=== PATIENT | female | born 1990 | race Hispanic/Latino ===

== ENCOUNTER 2019-06-01 13:50 | Inpatient (IN) | payer OTHER ==
[2019-06-01] MEDS ORDERED: TYLENOL PO ONE (16:44)
[2019-06-01] MEDS ORDERED: PITOCin/NS 20 UNIT/1000ML DRIP 20 UNITS/1,000 ML BAG IV SCH (17:00)
--- NOTE | 2019-06-01 17:46 | History and Physical Report ---
History of Present Illness Date of examination: 06/01/19 Date of admission: 06/01/19 13:50 Chief complaint: Delivered a fetus prior to or at arrival in the [facility]. Had not known was until the events of today. Past History Past Medical History: neurologic - Obstetrical History : 1 Medications and Allergies Allergies Allergy/AdvReac Type Severity Reaction Status Date / Time bee sting Allergy Unknown Uncoded 10/21/16 15:56 Home Medications Medication Instructions Recorded Confirmed Last Taken Type Acetaminophen [Tylenol] 1,000 mg PO Q8HR #20 tablet 10/21/16 Unknown Rx Active Meds: Active Medications Oxytocin/Sodium Chloride (Pitocin/Ns 20 Unit/1000ml Drip) 20 units in 1,000 mls @ 125 mls/hr IV DIRECT SURENDRA Review of Systems All systems: negative (Was eating lunch during encounter and was under no distress.) - Vital Signs Vital signs: Vital Signs Temp 98.6 F 06/01/19 14:10 Temp Pulse Resp BP Pulse Ox 98.6 F 67 117/72 06/01/19 14:10 06/01/19 17:24 06/01/19 17:24 - Physical Exam Breasts: Positive: deferred Lungs: Positive: Clear to auscultation Abdomen: Positive: soft Results All other labs normal. Assessment and Plan - Patient Problems (1) IUFD at less than 20 weeks of gestation Current Visit: Yes Status: Acute (2) Spontaneous Current Visit: Yes Status: Acute Plan to address problem: Under observation for complications of a spontaneous . Patient is undergoing lab blood tests and results will guide mgt. Had a pelvic US[images seen] but not reported yet.
--- NOTE | 2019-06-01 17:54 | Ultrasound Report ---
TRANSVAGINAL ULTRASOUND HISTORY: rule out retained placenta COMPARISON: TECHNIQUE: Transverse and longitudinal images were obtained of the pelvis using transvaginal ultrasou nd. FINDINGS: Uterus: Uterus measures 12.9 x 6.0 x 6.1 cm. Endometrium: Fluid is present in the region of the cervix measuring 1.3 x 2.3 x 4.9 cm Additional findings: None. IMPRESSION: 1. Fluid within the cervical portion of uterus without evidence of retained placenta. Recommend clini tom correlation Signer Name: Levi Edge MD Signed: 06/01/2019 5:49 PM Workstation Name: [id number]
[2019-06-01 17:57] LABS: Hematocrit 35.9 % (30.3-42.9); Hemoglobin 12.2 gm/dl (10.1-14.3); Mean Corpuscular HGB Conc 34 % (30-34); Mean Corpuscular Volume 91 fl (79-97); Platelet Count 214 K/mm3 (140-440); Red Blood Count 3.95 M/mm3 (3.65-5.03); Red Cell Distribution Width 13.9 % (13.2-15.2)
[2019-06-01] MEDS ORDERED: LANSINOH TP PRN (17:59)
[2019-06-01] MEDS ORDERED: DULCOLAX PR PRN (17:59)
[2019-06-01] MEDS ORDERED: TUCKS PAD TP PRN (17:59)
[2019-06-01] MEDS ORDERED: PHENERGAN PR PRN (17:59)
[2019-06-01] MEDS ORDERED: TYLENOL PO PRN (17:59)
[2019-06-01] MEDS ORDERED: ZOFRAN IV PRN (17:59)
[2019-06-01] MEDS ORDERED: BENADRYL PO PRN (17:59)
[2019-06-01] MEDS ORDERED: SODIUM CHLORIDE FLUSH SYRINGE 10 ML IV SCH (18:00)
[2019-06-01 19:13] VITALS: BP 134/87
[2019-06-01] MEDS ORDERED: IBUPROFEN PO SCH (20:00)
== END 2019-06-01 23:00 | disposition home or self-care (01) | DRG 779 ==
LOC: LD 13:50
PROVIDERS: ADMIT Obstetrics & Gynecology; ATTEND Obstetrics & Gynecology
PROC: 3E0334Z Introduction of Serum, Toxoid and Vaccine into Peripheral Vein, Percutaneous Approach (ICD-10-PCS; principal; 2019-06-01)
DX: O03.9 Complete or unspecified spontaneous abortion without complication (principal); O02.1 Missed abortion; Z3A.20 20 weeks gestation of pregnancy
CPT/HCPCS: 36415; 76857; 85027; 85461; 86850; 86900; 86901; 88305; G0378; J2590; J2790

== ENCOUNTER 2019-10-28 13:25 | Emergency (ER) | payer MEDICARE ==
--- NOTE | 2019-10-28 13:43 | Event Note ---
ED Screening Note Date of service: 10/28/19 Time: 13:40 ED Screening Note: 29 y o f presents cc of right thumb pain and swelling with discoloring s/p crush injury 2 days ago This initial assessment/diagnostic orders/clinical plan/treatment(s) is/are subject to change based on patients health status, clinical progression and re- assessment by fellow clinical providers in the ED. Further treatment and workup at subsequent clinical providers discretion. Patient/guardian urged not to elope from the ED as their condition may be serious if not clinically assessed and managed. Initial orders include: xr hand
--- NOTE | 2019-10-28 14:07 | Emergency Department Report ---
ED General Adult HPI - General Chief complaint: Extremity Injury, Upper Stated complaint: RT HAND PAIN Time Seen by Provider: 10/28/19 13:55 Source: patient Mode of arrival: Ambulatory Limitations: No Limitations - History of Present Illness Initial comments: This is a 29 year old female that states she was injured when a barbell fell on the tip of her thumb 2 days ago. She did not seek medical attention at that time. He has become progressively swollen and red as well as the dorsum of the hand. The patient does not refers fever or chills. -: Gradual, days(s) Location: right, upper extremity Radiation: non-radiation Consistency: intermittent Improves with: none Worsens with: movement Associated Symptoms: denies other symptoms - Related Data Previous Rx's Medication Instructions Recorded Last Taken Type Acetaminophen [Tylenol] 1,000 mg PO Q8HR #20 tablet 10/21/16 Unknown Rx Allergies Allergy/AdvReac Type Severity Reaction Status Date / Time bee sting Allergy Unknown Uncoded 10/21/16 15:56 ED Review of Systems ROS: Stated complaint: RT HAND PAIN Other details as noted in HPI Comment: All other systems reviewed and negative ED Past Medical Hx - Past Medical History Previous Medical History?: Yes Hx Diabetes: No Hx Deep Vein Thrombosis: No Hx Renal Disease: No Hx Sickle Cell Disease: No Hx Seizures: Yes (pt reports taking depakote) Hx Psychiatric Treatment: Yes Hx Asthma: No Additional medical history: ADHD, Bipolar, Anxiety, anemia - Surgical History Past Surgical History?: Yes Additional Surgical History: Jose eye surgery @ young age. Lithotripsy for kidneystones - Social History Smoking Status: Current Every Day Smoker Substance Use Type: Alcohol - Medications Home Medications: Home Medications Medication Instructions Recorded Confirmed Last Taken Type Acetaminophen [Tylenol] 1,000 mg PO Q8HR #20 tablet 10/21/16 Unknown Rx ED Physical Exam - General Limitations: No Limitations General appearance: alert, in no apparent distress - Head Head exam: Present: atraumatic, normocephalic - Eye Eye exam: Present: normal appearance, PERRL, EOMI. Absent: scleral icterus - ENT ENT exam: Present: mucous membranes moist, other (conjunctiva well perfused) - Neck Neck exam: Present: normal inspection. Absent: tenderness, meningismus - Respiratory Respiratory exam: Present: normal lung sounds bilaterally. Absent: respiratory distress - Cardiovascular Cardiovascular Exam: Present: regular rate, normal rhythm. Absent: systolic murmur, diastolic murmur, rubs, gallop - GI/Abdominal GI/Abdominal exam: Present: soft, normal bowel sounds. Absent: distended, tenderness, guarding - Extremities Exam Extremities exam: Present: other (the tip of the right forearm is apparently devitalized. There is a subungual hematoma which is not spontaneously draining. The rest of the thumb is really quite red and 2+ swollen with positive signs of tenosynovitis on extension, + [place]. The dorsum of the hand has 1+ edema erythema extends to the dorsum of the first webspace.) - Back Exam Back exam: Present: normal inspection - Neurological Exam Neurological exam: Present: alert, oriented X3 - Psychiatric Psychiatric exam: Present: normal affect, normal mood - Skin Skin exam: Present: warm, dry, intact, normal color. Absent: rash ED Course Vital Signs 10/28/19 13:29 Temperature 97.6 F Pulse Rate 104 H Respiratory 20 Rate Blood Pressure 128/76 O2 Sat by Pulse 100 Oximetry - Reevaluation(s) Reevaluation #1: Intravenous vancomycin. Laboratory database. Transfer to hand surgery at [facility] has been requested. 10/28/19 14:16 Reevaluation #2: Discussed with [facility]. They state their on total diversion and cannot accept the patient. 10/28/19 14:28 Reevaluation #3: Requested transfer to [facility]. 10/28/19 14:43 Reevaluation #4: [facility] has refused transfer. They claim they do not have hand surgery anywher e in the system. 10/28/19 14:51 Reevaluation #5: Calling [facility]. 10/28/19 14:52 - Consultations Consultation #1: Accepted by Dr. Walton at [facility]. Will transport by ambulance. 10/28/19 15:05 Critical care attestation.: If time is entered above; I have spent that time in minutes in the direct care of this critically ill patient, excluding procedure time. ED Disposition Clinical Impression: Infection of thumb, Tenosynovitis, Cellulitis of hand Disposition: [id number] ANOTHER TYPE HLTHCARE Is pt being admited?: No Does the pt Need Aspirin: No Condition: Stable Referrals: PRIMARY CARE, [Primary Care Provider] - 3-5 Days Time of Disposition: 14:16
[2019-10-28] MEDS ORDERED: TETANUS,DIPH,PERTUSS(ACELL) VACCINE 0.5 ML SYRINGE IM ONE (14:08)
[2019-10-28] MEDS ORDERED: VANCOMYCIN/NS 1 GM/250 ML 1 GM/250 ML BAG IV ONE (14:08)
--- NOTE | 2019-10-28 14:20 | XRay Report ---
RIGHT HAND 3 VIEWS INDICATION / CLINICAL INFORMATION: pain, swelling, discoloring COMPARISON: None available. FINDINGS: BONES / JOINT(S): No acute fracture or subluxation. No significant arthritis. SOFT TISSUES: No significant abnormality. ADDITIONAL FINDINGS: None. Signer Name: Jermain Jessica MD Signed: 10/28/2019 2:15 PM Workstation Name: [id number]
[2019-10-28] MEDS ORDERED: SODIUM CHLORIDE 0.9% 1000 ML 1,000 ML IV ONE (14:26)
[2019-10-28] MEDS ORDERED: MORPHINE 2 MG/1 ML INJ IV ONE ×3 (14:26→16:13)
[2019-10-28] MEDS ORDERED: CLINDAMYCIN 600 MG/50 mL 600 MG/50 ML BAG IV ONE (14:26)
[2019-10-28] MEDS ORDERED: ONDANSETRON 4 MG/2 ML INJ IV ONE (14:26)
[2019-10-28] MEDS ORDERED: VANCOMYCIN 1,250 MG in SODIUM CHLORIDE 0.9% 250ML 250 ML IV ONE (14:30)
[2019-10-28] MEDS ORDERED: MORPHINE 2 MG/1 ML INJ IV PRN (15:13)
[2019-10-28 16:02] LABS: Basophils % (Auto) 0.2 % (0.0-1.8); Eosinophils # (Auto) 0.1 K/mm3 (0.0-0.4); Eosinophils % (Auto) 0.8 % (0.0-4.3); Hematocrit 35.8 % (30.3-42.9); Hemoglobin 12.2 gm/dl (10.1-14.3); Lymphocytes # (Auto) 1.3 K/mm3 (1.2-5.4); Lymphocytes % (Auto) 15.3 % (13.4-35.0); Mean Corpuscular HGB Conc 34 % (30-34); Mean Corpuscular Volume 87 fl (79-97); Monocytes # (Auto) 0.4 K/mm3 (0.0-0.8); Monocytes % (Auto) 4.5 % (0.0-7.3); Platelet Count 275 K/mm3 (140-440); Red Blood Count 4.09 M/mm3 (3.65-5.03); Red Cell Distribution Width 13.7 % (13.2-15.2)
[2019-10-28 16:10] LABS: BUN/Creatinine Ratio 10; Blood Urea Nitrogen 5 mg/dL (7-17); Calcium 8.8 mg/dL (8.4-10.2); Hemolysis Index 9
[2019-10-28 16:20] LABS: Partial Thromboplastin Time 32.1 Sec. (24.2-36.6)
[2019-10-28 16:22] VITALS: BP 131/68
[2019-10-28 16:23] LABS: INR 0.96 (0.87-1.13)
== END 2019-10-28 18:31 | disposition other institution (70) ==
LOC: ED 13:25
DX: M65.9 Synovitis and tenosynovitis, unspecified (principal); L03.113 Cellulitis of right upper limb; G40.909 Epilepsy, unspecified, not intractable, without status epilepticus; F17.200 Nicotine dependence, unspecified, uncomplicated; Z98.890 Other specified postprocedural states; Z79.899 Other long term (current) drug therapy; Z88.8 Allergy status to other drugs, medicaments and biological substances
CPT/HCPCS: 36415; 73130; 80048; 85025; 85610; 85730; 87040; 90471; 90715; 96365; 96366; 96375; 96376; 99285; J2270; J2405; J3370; J7030; J7050; 96367

== ENCOUNTER 2019-11-13 02:44 | Emergency (ER) | payer MEDICARE ==
[2019-11-13 03:08] VITALS: BP 116/72
== END 2019-11-13 08:23 | disposition left against medical advice (07) ==
LOC: ED 02:44
DX: L08.9 Local infection of the skin and subcutaneous tissue, unspecified (principal); Z53.21 Procedure and treatment not carried out due to patient leaving prior to being seen by health care provider